=== PATIENT | female | born 1995 | race Caucasian/White ===

== ENCOUNTER 2018-11-27 11:38 | Emergency (ER) | payer OTHER ==
[2018-11-27 13:00] VITALS: BP 125/77
--- NOTE | 2018-11-27 13:38 | UC ---
Dental HPI - HPI Summary HPI Summary: 23 y/o female presents to the urgent care c/o Patient stated she has had a worsening dental infection for two weeks. Intermittent left lower molar pain especially at night radiating to head and face worsening over two weeks. No known fever. Does sweat when she has severe pain. Aleve was initially helpful. Patient is interesting in getting an antibiotic. Dental cleaning appointment in five days. Previously scheduled repair for February 2019. - History of Current Complaint Chief Complaint: UCDentalProblem Stated Complaint: DENTAL COMPLAINT Time Seen by Provider: 11/27/18 13:19 Hx Obtained From: Patient Hx Last Menstrual Period: 11/26/18 Pain Intensity: 0 - Allergies/Home Medications Allergies/Adverse Reactions: Allergies Allergy/AdvReac Type Severity Reaction Status Date / Time No Known Allergies Allergy Verified 11/27/18 12:57 Home Medications: Home Medications Norgestrel/Ethinyl Estrad TAB* [Ogestrel TAB 0.5/0.05*] 1 tab PO DAILY 11/27/18 [History Confirmed 11/27/18] PMH/Surg Hx/FS Hx/Imm Hx - Surgical History Surgical History: None - Social History Alcohol Use: Occasionally Substance Use Type: None Smoking Status (MU): Current Some Day Smoker Physical Exam Vital Signs: Initial Vital Signs Temp 97.7 F 11/27/18 12:54 Pulse 56 11/27/18 12:54 Resp 17 11/27/18 12:54 BP 125/77 11/27/18 12:54 Pulse Ox 97 11/27/18 12:54 Dental Complaint Course/Dx - Differential Dx/Diagnosis Differential Diagnosis/Dx: Dental Abscess, Dental Caries, Fractured Tooth, Odontogenic Pain, Peridontic Disease, Peritonsillar Abcess Provider Diagnosis: Dental abscess Discharge - Sign-Out/Discharge Documenting (check all that apply): Patient Departure - d/c home All imaging exams completed and their final reports reviewed: No Studies - Discharge Plan Condition: Stable Disposition: HOME Prescriptions: Amoxicillin PO (*) [Amoxicillin 500 MG CAP*] 500 mg PO TID #30 cap RX: Ibuprofen TAB* [Motrin TAB* 600 MG] 600 mg PO Q6H PRN #30 tab PRN Reason: dental pain Patient Education Materials: Dental Abscess (ED) Referrals: [facility] [place] [facility] [Outside] - 3 Days Additional Instructions: 1-Please take full course of antibiotics to avoid resistance. Take yogurts w/ probiotics or culturelle to protect your GI system. 2- Take Ibuprofen PO q6-8hrs prn as instructed after meals to alleviate pain and swelling. 3- F/u with your Dentist on your appt for next week for further treatment. - Billing Disposition and Condition Condition: STABLE Disposition: Home
== END 2018-11-27 13:56 | disposition home or self-care (01) ==
LOC: UCCORT 11:38
DX: K04.7 Periapical abscess without sinus (principal); F17.210 Nicotine dependence, cigarettes, uncomplicated
CPT/HCPCS: 99212; G0463